=== PATIENT | female | born 1975 | race Caucasian/White ===

== ENCOUNTER 2016-12-20 21:12 | Emergency (ER) | payer BC ==
[2016-12-20] MEDS ORDERED: AMITRIPTYLINE H50 M1 PO (21:19)
[2016-12-20] MEDS ORDERED: MULTIVITAMINS1 EAC7 PO (21:19)
[2016-12-20] MEDS ORDERED: MIRENA1 EACH IY (21:20)
== END 2016-12-20 22:00 ==
LOC: EDMED 21:12
PROC: 0HQFXZZ Repair Right Hand Skin, External Approach (ICD-10-PCS; principal; 2016-12-20)
DX: S61.011A Laceration without foreign body of right thumb without damage to nail, initial encounter (principal); Z98.890 Other specified postprocedural states; Z23 Encounter for immunization; W26.0XXA Contact with knife, initial encounter; Y93.G9 Activity, other involving cooking and grilling; Y92.019 Unspecified place in single-family (private) house as the place of occurrence of the external cause; Y99.8 Other external cause status